=== PATIENT | female | born 1985 | race Caucasian/White ===

== ENCOUNTER 2020-02-12 06:56 | Outpatient (REF) | payer OTHER, SELFPAY ==
[2020-02-12 11:29] LABS: Hematocrit 41.7 % (37-47); Hemoglobin 13.9 g/dl (12.0-16.0); Mean Corpuscular HGB Conc 33.3 g/dl (31.0-35.0); Mean Corpuscular Hemoglobin 30.2 pg (27.0-33.0); Mean Corpuscular Volume 90.5 fL (80-98); Mean Platelet Volume 12.1 fL (9.4-12.3); Platelet Count 172 X10*3/uL (160-400); Red Blood Count 4.61 X10*6/uL (4.20-5.50); White Blood Count 4.5 X10*3/uL (4.8-10.8)
[2020-02-12 11:38] LABS: Glucose Urine UA NEG (NEG); Leukocyte Esterase Urine 2+ (NEG); Nitrite Urine NEG (NEG); Urine Blood NEG (NEG); Urine Ketones NEG (NEG); Urine Protein NEG (NEG-TRACE)
[2020-02-12 11:47] LABS: Appearance Urine HAZY; Color Urine STRAW
[2020-02-12 11:58] LABS: Bacteria Urine 1+ /LPF; RBC Urine 0 /HPF (0); Squamous Epithelial Cell Urine 4+ /LPF
[2020-02-12 12:20] LABS: Alanine Aminotransferase 14 U/L (0-31); Albumin Level 4.4 g/dL (3.5-5.0); Alkaline Phosphatase 56 U/L (39-117); Anion Gap 16 (12-20); Aspartate Amino Transferase 17 U/L (5-31); Bilirubin Total 0.9 mg/dL (0.0-1.0); Blood Urea Nitrogen 13 mg/dL (9-16); Carbon Dioxide 22 mmol/L (22-29); Chloride 103 mmol/L (96-108); Cholesterol 160 mg/dL; Estimated Glomerular Filt Rate > 60; Glucose Fasting 75 mg/dL (60-99); HDL Cholesterol 55 mg/dL; LDL Cholesterol Calculated 95 mg/dl; Sodium 137 mmol/L (135-145); Total Protein 7.1 g/dL (6.5-8.0); Triglycerides 54 mg/dL
== END 2020-02-12 06:57 | disposition home or self-care (01) ==
LOC: HO.HMGCLDS 06:56
PROVIDERS: PCP Internal Medicine; Visit Provider Internal Medicine
DX: Z00.00 Encounter for general adult medical examination without abnormal findings (principal)
CPT/HCPCS: 36415; 80053; 80061; 81001; 85027

== ENCOUNTER 2023-04-28 08:10 | Outpatient (AMB) | payer OTHER, SELFPAY ==
--- NOTE | 2023-04-28 08:22 | MHC.PC.OV ---
Vital Signs 04/28/23 08:23 Height 5 ft 6 in Weight 161 lb BMI 26.0 BP 110/70 Blood Pressure Location Lt brachial Position Sitting Pulse 60 Pulse Source Pulse Oximeter Pulse Oximetry (%) 96 Oxygen Delivery Method Room Air Intake Visit Reasons: Annual PE Intake Note: Pt is here today for PE. 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 Allergies No Known Allergies Allergy (Verified 04/28/23 08:25) Medication List - Last Reconciled 04/28/23 by Diana Mcneill MD desog-e.estradiol/e.estradiol 0.15-0.02 mgx21 /0.01 mg x 5 (Vi[place]le (28)) 1 tab PO DAILY Tobacco use date assessed: 04/28/23 Dental Screening Dental Screen Date: 04/28/23 Did you have a dental visit in the last 12 months?: Yes Did you have a dental problem in the last 6 months where you did not have access to dental care?: No Was dental information given to patient?: Patient has dentist HPI Annual PE HPI Details Pt presents for PE. [facility] Medical History Thyroiditis Annual physical exam Surgical History (Updated 01/10/20 @ 15:02 by Linda Freitsa Silvano, [facility]) Hx of knee surgery Family History (Updated 04/28/23 @ 08:41 by Diana Mcneill MD) Father No problems noted. Mother HTN (hypertension) CAD (coronary artery disease) Sister No problems noted. Sister No problems noted. 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 1. Little interest or pleasure in doing things: not at all 2. Feeling down, depressed, or hopeless: not at all 3. Trouble falling or staying asleep, or sleeping too much: not at all 4. Feeling tired or having little energy: not at all 5. Poor appetite or overeating: not at all 6. Feeling bad about yourself - or that you are a failure or have let yourself or your family down: not at all 7. Trouble concentrating on things, such as reading the newspaper or watching television: not at all 8. Moving or speaking so slowly that other people could have noticed. Or the opposite - being so fidgety or restless that you have been moving around a lot more than usual: not at all 9. Thoughts that you would be better off or of hurting yourself in some way: not at all Total score: 0 Depression Screening Interpretation: Negative Depression Screening Done: Yes Source: Developed by Drs. Rigo Castillo, Pam Latham, Kelvin Reyes and colleagues, with an educational bogdan from [employer]. Thrive Questionnaire Date Thrive assessed: 04/28/23 I am a: Patient What is your living situation today?: I have a steady place to live Within the past 12 months, did the food you bought not last and you didn't have the money to get more?: Never true Within the past 12 months, did you worry whether your food would run out before you got money to buy more?: Never true Do you have trouble paying for medicines?: No Do you have trouble getting transportation to medical appointments?: No Do you have trouble paying your heating and electricity bill?: No Do you have trouble taking care of your child, family member or friend?: No Do you have trouble with day-to-day activities such as bathing, preparing meals, shopping, managing finances, etc.?: No Are you currently unemployed and looking for a job?: No Are you interested in more education?: No Please select the resources that you would like help with: None THRIVE Score: 0 AUDIT C Alcohol Use Questionnaire (AUDIT-C) 1. How often do you have a drink containing alcohol?: Monthly or less 2. How many drinks containing alcohol do you have on a typical day when you are drinking?: 1 or 2 3. How often do you have six or more drinks on one occasion?: Never Total Score: 1 KASSANDRA-7 AMB Questionnaire KASSANDRA-7 Date KASSANDRA - 7 assessed: 04/28/23 Feeling nervous, anxious, or on edge: 0 = Not at all Not being able to stop or control worryin = Not at all Worrying too much about different things: 0 = Not at all Trouble relaxin = Not at all Being so restless that it is hard to sit still: 0 = Not at all Becoming easily annoyed or irritable: 0 = Not at all Feeling afraid as if something awful might happen: 0 = Not at all Total KASSANDRA-7 score (0-4 normal; 5-9 mild; 10-14 moderate; 15-21 severe): 0 Source: Developed by Drs. Rigo Castillo, Pam Latham, Kelvin Reyes and colleagues, with an educational bogdan from [employer]. Review of Systems Const All systems reviewed & are unremarkable except as noted in HPI and below Reports no additional complaints Eyes Reports no additional complaints ENT Reports no additional complaints Card Reports no additional complaints Resp Reports no additional complaints GI Reports no additional complaints Reports no additional complaints Physical exam (Primary Care) Vital Signs: Last Vital Signs Pulse 60 04/28/23 08:23 BP 110/70 04/28/23 08:23 Pulse Ox 96 04/28/23 08:23 Oxygen Delivery Method Room Air 04/28/23 08:23 BMI result Body Mass Index 26.0 Tobacco/Smoking Status: Tobacco use Status Tobacco use date assessed 04/28/23 04/28/23 08:31 Patient Tobacco Use Status Never used Tobacco 04/28/23 08:31 e-Cigarette/Vaping Use Never Used 04/28/23 08:31 PHQ-9: PHQ-9 Score PHQ-9: Total score 0 04/28/23 08:37 Depression Screening Interpretation: Negative Thrive Assessment: Date of Thrive Assessment Date Thrive assessed 04/28/23 04/28/23 08:33 Const General: no acute distress HENMT Head: Yes normal to inspection Ears: hearing grossly normal bilaterally Face and sinus: Yes normal facial exam Mouth: Normal oral and palatal mucosa present Throat: Yes posterior oropharynx normal Eyes General: appearance normal, both eyes and all related structures Neck Neck: Yes no lymphadenopathy and Yes supple Chest Chest palpation & inspection: normal inspection of the chest Resp Effort & Inspection: normal respiratory effort Cardio Rhythm: regular rhythm Heart sounds: S1 normal heart sound present and S2 normal heart sound present GI Inspection: Yes normal to inspection Palpation (GI): Soft to palpation Percussion: Yes normal to percussion Auscultation: normal bowel sounds Assessment and Plan Assessment & Plan (1) Annual physical exam: Code(s): Z00.00 - Encounter for general adult medical examination without abnormal findings Plan: Well-balanced diet regular physical activity discussed with the patient. 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 Panel Fast Today Z00.00 - Encounter for general adult medical examination without abnormal findings UA w Microscopic Today Z00.00 - Encounter for general adult medical examination without abnormal findings Referrals Dermatology Referral D23.9 - Other benign neoplasm of skin, unspecified Coding Level of Care Code Est Pt Prev Care 18-39y(05163) Diagnoses Annual physical exam Z00.00 Dysplastic nevi D23.9
[2023-04-28 08:23] VITALS: BP 110/70; PULSE 60; O2SAT 96; BMI 26.0
== END 2023-04-28 08:47 | disposition home or self-care (01) ==
PROVIDERS: PCP Internal Medicine; Visit Provider Internal Medicine
DX: Z00.00 Encounter for general adult medical examination without abnormal findings (principal); D23.9 Other benign neoplasm of skin, unspecified
CPT/HCPCS: 99395

== ENCOUNTER 2023-06-23 07:16 | Outpatient (REF) | payer OTHER, SELFPAY ==
[2023-06-23 10:32] LABS: MANUAL DIFF FLAG NO
[2023-06-23 10:35] LABS: Basophils Percent Auto 0.5 % (0-2); Eosinophils Absolute Auto 0.1 X10*3/uL (0.0-0.4); Eosinophils Percent Auto 1.7 % (0-4); Hematocrit 41.9 % (37.0-47.0); Hemoglobin 14.1 g/dl (12.0-16.0); Imm Gran Abs Auto 0.01 X10*3/uL (0.00-0.03); Imm Gran Pct Auto 0.2 % (0.0-0.4); Lymphocytes Absolute Auto 1.6 X10*3/uL (1.2-4.9); Lymphocytes Percent Auto 38.6 % (20-40); Mean Corpuscular HGB Conc 33.7 g/dl (31.0-35.0); Mean Corpuscular Hemoglobin 29.9 pg (27.0-33.0); Mean Corpuscular Volume 88.8 fL (80.0-98.0); Mean Platelet Volume 11.8 fL (9.4-12.3); Monocytes Absolute Auto 0.7 X10*3/uL (0.1-1.2); Monocytes Percent Auto 16.1 % (2-11); Neutrophils Absolute Auto 1.8 x10*3/uL (2.0-8.3); Neutrophils Percent Auto 42.9 % (45-73); Platelet Count 170 X10*3/uL (160-400); Red Blood Count 4.72 X10*6/uL (4.20-5.50); Red Cell Distribution Width 12.7 % (11.0-16.0); White Blood Count 4.2 X10*3/uL (4.8-10.8)
[2023-06-23 10:50] LABS: Appearance Urine Clear; Color Urine Yellow; Glucose Urine UA Negative (Negative); Leukocyte Esterase Urine Trace (Negative); Nitrite Urine Negative (Negative); PH 7.5 (5.0-9.0); UMIC TRIGGER UA YES; Urine Blood Moderate (2+) (Negative); Urine Ketones Negative (Negative); Urine Protein Negative (Neg-Trace)
[2023-06-23 11:07] LABS: Bacteria Urine None Seen (None Seen); Hyaline Casts Urine 0-2 /LPF (0-2); Squamous Epithelial Cell Urine >20 /HPF (0-2); WBC Urine 0-5 /HPF (0-5)
[2023-06-23 11:18] LABS: Alanine Aminotransferase 23 U/L (0-31); Albumin Level 3.9 g/dL (3.5-5.0); Alkaline Phosphatase 47 U/L (39-117); Anion Gap 13 (12-20); Aspartate Amino Transferase 19 U/L (5-31); Bilirubin Total 0.3 mg/dL (0.0-1.0); Blood Urea Nitrogen 12 mg/dL (9-16); Calcium 9.5 mg/dL (8.4-10.2); Carbon Dioxide 27 mmol/L (22-29); Chloride 104 mmol/L (96-108); Cholesterol 169 mg/dL (<200); Estimated Glomerular Filt Rate > 60; Glucose Fasting 84 mg/dL (60-99); HDL Cholesterol 65 mg/dL (>40); LDL Cholesterol Calculated 89 mg/dL (<100); Potassium 4.2 mmol/L (3.3-5.1); Sodium 140 mmol/L (135-145); Total Protein 7.2 g/dL (6.5-8.0); Triglycerides 78 mg/dL (<150)
== END 2023-06-23 07:17 | disposition home or self-care (01) ==
LOC: HO.HMGCLDS 07:16
PROVIDERS: PCP Internal Medicine; Visit Provider Internal Medicine
DX: Z00.00 Encounter for general adult medical examination without abnormal findings (principal)
CPT/HCPCS: 36415; 80053; 80061; 81001; 85025

== ENCOUNTER 2023-07-12 07:08 | Outpatient (REF) | payer OTHER, SELFPAY ==
[2023-07-12 10:40] LABS: Appearance Urine Clear; Color Urine Yellow; Glucose Urine UA Negative (Negative); Leukocyte Esterase Urine Negative (Negative); Nitrite Urine Negative (Negative); PH 7.5 (5.0-9.0); Specific Gravity - Urine 1.015 (1.005-1.025); Urine Blood Negative (Negative); Urine Ketones Negative (Negative); Urine Protein Negative (Neg-Trace)
[2023-07-12 10:46] LABS: Bacteria Urine None Seen (None Seen); Hyaline Casts Urine 0-2 /LPF (0-2); RBC Urine 0-2 /HPF (0-2); WBC Urine 0-5 /HPF (0-5)
== END 2023-07-12 07:09 | disposition home or self-care (01) ==
LOC: HO.HMGCLDS 07:08
PROVIDERS: PCP Internal Medicine; Visit Provider Internal Medicine
DX: Z00.00 Encounter for general adult medical examination without abnormal findings (principal)
CPT/HCPCS: 81001

== ENCOUNTER 2024-05-10 12:49 | Outpatient (AMB) | payer OTHER, SELFPAY ==
--- NOTE | 2024-05-10 13:18 | A.OFFPC_ITS ---
Vital Signs 05/10/24 13:19 Height 5 ft 6 in Weight 168 lb BMI 27.1 BP 110/66 Blood Pressure Location Rt brachial Position Sitting Respiration 18 Pulse 61 Pulse Source Pulse Oximeter Temp 98.6 F Temp Source Oral Pulse Oximetry (%) 98 Oxygen Delivery Method Room Air Intake Visit Reasons: Annual PE Intake Note: Pt is here today for PE. Allergies No Known Allergies Allergy (Verified 05/10/24 13:21) Tobacco use date assessed: 05/10/24 Dental Screening Dental Screen Date: 05/10/24 Did you have a dental visit in the last 12 months?: Yes Did you have a dental problem in the last 6 months where you did not have access to dental care?: No Was dental information given to patient?: Patient has dentist HPI Annual PE HPI Details Pt presents for PE. PFSH Medical History Thyroiditis Annual physical exam Surgical History Hx of knee surgery Family History Father No problems noted. Mother HTN (hypertension) CAD (coronary artery disease) Sister No problems noted. Sister No problems noted. 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 1. Little interest or pleasure in doing things: not at all 2. Feeling down, depressed, or hopeless: not at all 3. Trouble falling or staying asleep, or sleeping too much: not at all 4. Feeling tired or having little energy: several days 5. Poor appetite or overeating: not at all 6. Feeling bad about yourself - or that you are a failure or have let yourself or your family down: not at all 7. Trouble concentrating on things, such as reading the newspaper or watching television: not at all 8. Moving or speaking so slowly that other people could have noticed. Or the opposite - being so fidgety or restless that you have been moving around a lot more than usual: not at all 9. Thoughts that you would be better off or of hurting yourself in some way: not at all Total score: 1 Depression Screening Interpretation: Negative Depression Screening Done: Yes 05343 - PHQ-9 Billing: Yes Source: Developed by Drs. Rigo Castillo, Pam Latham, Kelvin Reyes and colleagues, with an educational bogdan from [employer]. Thrive Questionnaire Date Thrive assessed: 05/10/24 I am a: Patient What is your living situation today?: I have a steady place to live Within the past 12 months, did the food you bought not last and you didn't have the money to get more?: Never true Within the past 12 months, did you worry whether your food would run out before you got money to buy more?: Never true Do you have trouble paying for medicines?: No Do you have trouble getting transportation to medical appointments?: No Do you have trouble paying your heating and electricity bill?: No Do you have trouble taking care of your child, family member or friend?: No Do you have trouble with day-to-day activities such as bathing, preparing meals, shopping, managing finances, etc.?: No Are you currently unemployed and looking for a job?: No Are you interested in more education?: No Please select the resources that you would like help with: None Currently or been in a relationship where the following occur: No concerns reported THRIVE Score: 0 AUDIT C Alcohol Use Questionnaire (AUDIT-C) 1. How often do you have a drink containing alcohol?: Monthly or less 2. How many drinks containing alcohol do you have on a typical day when you are drinking?: 3 or 4 3. How often do you have six or more drinks on one occasion?: Never Total Score: 2 KASSANDRA-7 AMB Questionnaire KASSANDRA-7 Date KASSANDRA - 7 assessed: 05/10/24 Feeling nervous, anxious, or on edge: 1 = Several days Not being able to stop or control worryin = Not at all Worrying too much about different things: 1 = Several days Trouble relaxin = Not at all Being so restless that it is hard to sit still: 0 = Not at all Becoming easily annoyed or irritable: 1 = Several days Feeling afraid as if something awful might happen: 0 = Not at all Total KASSANDRA-7 score (0-4 normal; 5-9 mild; 10-14 moderate; 15-21 severe): 3 Source: Developed by Drs. Rigo Castillo, Pam Latham, Kelvin Reyes and colleagues, with an educational bogdan from [employer]. KASSANDRA-7 Assessment Billing KASSANDRA-7 Assessment Tool: KASSANDRA-7 Assessment 10237 Review of Systems Const All systems reviewed & are unremarkable except as noted in HPI and below Reports no additional complaints Eyes Reports no additional complaints ENT Reports no additional complaints Card Reports no additional complaints Resp Reports no additional complaints GI Reports no additional complaints Physical exam (Primary Care) Vital Signs: Last Vital Signs Temp 98.6 F 05/10/24 13:19 Pulse 61 05/10/24 13:19 Resp 18 05/10/24 13:19 BP 110/66 05/10/24 13:19 Pulse Ox 98 05/10/24 13:19 Oxygen Delivery Method Room Air 05/10/24 13:19 BMI result Body Mass Index 27.1 Tobacco/Smoking Status: Tobacco use Status Tobacco use date assessed 05/10/24 05/10/24 13:24 Patient Tobacco Use Status Never used Tobacco 05/10/24 13:24 e-Cigarette/Vaping Use Never Used 05/10/24 13:24 PHQ-9: PHQ-9 Score PHQ-9: Total score 1 05/10/24 13:24 Depression Screening Interpretation: Negative Thrive Assessment: Date of Thrive Assessment Date Thrive assessed 05/10/24 05/10/24 13:24 Currently or been in a relationship where the following occur: No concerns reported Const General: no acute distress HENMT Head: Yes normal to inspection Ears: hearing grossly normal bilaterally Mouth: Normal oral and palatal mucosa present Throat: Yes posterior oropharynx normal Eyes General: appearance normal, both eyes and all related structures Neck Neck: Yes no lymphadenopathy and Yes supple Resp Effort & Inspection: normal respiratory effort Auscultation: clear to auscultation bilaterally Cardio Rhythm: regular rhythm Heart sounds: S1 normal heart sound present and S2 normal heart sound present GI Inspection: Yes normal to inspection Palpation (GI): Soft to palpation Percussion: Yes normal to percussion Auscultation: normal bowel sounds Coding Level of Care Code Est Pt Prev Care 18-39y(54280) Diagnoses Annual physical exam Z00.00 Normal pelvic exam Z01.419 Additional Codes KASSANDRA-7 Assessment Billing - KASSANDRA-7 Assessment Tool: KASSANDRA-7 Assessment 59341 ([id number]) PHQ-9 - 27978 - PHQ-9 Billing: Yes ([id number]) Assessment & Plan Assessment & Plan (1) Annual physical exam: Code(s): Z00.00 - Encounter for general adult medical examination without abnormal findings Category: Medical Plan: Well-balanced diet regular physical activity discussed with the patient (2) Normal pelvic 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
[2024-05-10 13:19] VITALS: BP 110/66; PULSE 61; RESP 18; TEMP 37; O2SAT 98; BMI 27.1
--- OUTSIDE RECORDS SUMMARY | 2024-05-10 14:39 | XMS_ITS | Patient Health Record ---
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 Name Role Phone Diana Mcenill MD Primary Care Provider Carrie Lo Unavailable [phone] Allergies No Known Allergies Results Component Value Reference Range Notes Urinalysis Reviewed date:03/04/2024 02:03:48 PM Interpretation: Performing Lab: Notes/Report: PH 5.0 PROTEIN Neg GLUCOSE Neg BLOOD Trace Reason For Referral No Information Medications Medication SIG (Take, Route, Frequency, Duration) Notes Start Date End Date Status Multi-Vitamin - 1 tablet Orally Once a day Active Kariva 0.15-0.02/0.01 MG (26/06) 1 tablet Orally Once a day for 90 days 03/04/2024 Active Kariva 0.15-0.02/0.01 MG (26/06) 1 tablet Orally Once a day for 90 days 03/01/2023 Active Immunizations Vaccine Route Administration Date Status Comme nts Influenza, live, intranasal Intramuscular 12/13/2012 Pendi ng Tdap Intramuscular 12/13/2012 Pending Social History Tobacco Use: Social History Observation Description Date Details (start date - stop date) Never Smoker NA - NA Sexual History Question Answer Notes Had sex in the past 12 months (vaginal, oral, or anal)? Yes with Men only Prevention strategies discussed: Other AUDIT-C (Standard) Question Answer Notes Did you have a drink contain ing alcohol in the past year? Yes How often did you have a dri nk containing alcohol in the past year? Never (0 point) How many drinks did you have on a typical day when you were drinking in the past year? 1 or 2 drinks (0 point) How often did you have six o r more drinks on one occasion in the past year? Less than monthly (1 point) Points 1 Interpretation Negative Tobacco Control (Standard) Question Answer Notes Tobacco use: Nonsmoker Problems Problem Type SNOMED Code ICD Code Onset Dates Problem Status W/U Status Risk Notes Problem Amenorrhea (63202269) Amenorrhea, unspecified (N91.2) Active confirmed Problem Irregular Menstruation (83290148) Other specified irregular menstruation (N92.5) Active confirmed Problem Abnormal vaginal bleeding (496347009) Other specified abnormal uterine and vaginal bleeding (N93.8) Active confirmed Problem Gynecological examination normal (936469947680408) Encounter for gynecological examination (general) (routine) without abnormal findings (Z01.419) Active confirmed Problem General examination of patient (688188652) Routine general medical examination at health care facility (V70.0) Active confirmed Diag Problem Gynecological examination normal (819032675242160) Routine gynecological examination (V72.31) Active confirmed Diag Problem Exercises teaching, guidance, and counseling (201017566) Exercise counseling (V65.41) Active confirmed Diag Vital Signs Temperature 97.9 degrees Fahrenheit 03/04/2024 Blood pressure diastolic 76 mm Hg 03/04/2024 Height 66.5 in 03/04/2024 Blood pressure systolic 106 mm Hg 03/04/2024 Weight 168 lbs 03/04/2024 BMI 26.71 kg/m2 03/04/2024 Encounters Encounter Location Date Provider Diagnosis [address] [place] [address] 03/04/2024 Carrie Quiles Encounter for gynecological examination (general) (routine) without abnormal findings Z01.419 ; Encounter for surveillance of contraceptives, unspecified Z30.40 and Other specified irregular menstruation N92.5 Assessments Encounter Date Diagnosis (ICD Code) Assessment Notes Treatment Notes Treatment Clinical Notes Section Notes 03/04/2024 Encounter for gynecological examination (general) (routine) without abnormal findings (ICD-10 - Z01.419) NO PAP TEST, DUE IN 2025. 03/04/2024 Encounter for surveillance of contraceptives, unspecified (ICD-10 - Z30.40) PAT'S HAS HAD A VASECTOMY. SHE IS ON OCP'S TO REGULATE MENSES. 03/04/2024 Other specified irregular menstruation (ICD-10 - N92.5) CONTINUE KARIVA. Plan Of Treatment Pending Test Test Name Order Date THIN PREP,HPV,JOHANNE IF HPV+ (>29YR)(SCRN) 04/24/2017 ULTRASOUND: PELVIC W/TRANSVAGINAL 2017 ENDO/VAG ULTRASOUND OB 02/20/2020 Next Appt Details Provider Name:Carrie art, 03/07/2025 01:00:00 PM, [address] [facility] [facility], [address], [place], [address], Insurance Providers Payer Name Payer Address Payer Phone Subscriber Number Group Number Insured Name Patient Relationship to Insured Coverage Start Date Coverage End Date [employer] [address] [place] [address] [id number] DHRUV ALONSO Self - patient is the insured Medical (General) History Medical History History ICD Code Amenorrhea, unspecified N91.2 Uterine size-date discrepancy, first tri mester O26.841 Other specified abnormal uterine and vag inal bleeding N93.8 Surgical History Surgery Date(Month/Year) Left Knee Surgery/ACL Repair/Meniscus [place] [facility] Left Miniiscus Surgery x3 Toe Tendon Repair 10/2020 Hospitalization History Reason Date(Month/Year) See Surgical Hx
--- OUTSIDE RECORDS SUMMARY | 2024-05-10 14:39 | XMS_ITS ---
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 Electromechanical Engineer Name Role Phone Diana Mcneill MD Primary Care Provider Carrie Lo [phone] Medications Medication SIG (Take, Route, Frequency, Duration) Notes Start Date End Date Status Kariva 0.15-0.02/0.01 MG (26/06) 1 tablet Orally Once a day for 90 days 03/01/2023 Active Encounters Encounter Location Date Provider Diagnosis [facility] [address] [address] 03/01/2023 Carrie Quiles Plan Of Treatment Medication Medication Name Sig Start Date Stop Date Notes Kariva 0.15-0.02/0.01 MG (26/06) 1 tablet Orally Once a day for 90 days 03/01/2023 Next Appt Details Provider Name:Carrie art, 03/07/2025 01:00:00 PM, [address] [facility], [address], [place], [address], Progress Notes * SIERRA ALONSONICHOLB:1985 (37 yo F)Acc No.[id number]:03/01/2023 Patient:?DHRUV ALONSO :1985???Age:37 Y???Sex:Female Address:[address] [place] [address] , [place], [address] * Refills? Start Kariva Tablet, 0.15-0.02/0.01 MG (26/06), Orally, 3 Pack, 1 tablet, Once a day, 90 days, Refills=4 * true * Date:? Generated for Chucho das/Damian/Marky on:?05/10/2024 02:38 PM EDT
--- OUTSIDE RECORDS SUMMARY | 2024-05-10 14:39 | XMS_ITS ---
Author Organization [facility] Address [address] [place] [address] Care Team Providers Care Client Success Director Name Role Phone Diana Mcneill MD Primary Care Provider Carrie Lo Unavailable [phone] Allergies No Known Allergies Results Component Value Reference Range Notes Urinalysis Reviewed date:02/27/2023 02:09:55 PM Interpretation: Performing Lab: Notes/Report: PH 6.0 PROTEIN Neg GLUCOSE Neg BLOOD Large ESTRADIOL Reviewed date:02/28/2023 09:14:22 AM Interpretation: Performing Lab:Testing performed or reported by [facility], a Service of [facility], [address] [place] [address] Charlie Trejo MD, Painter And Body Mechanic Apprentice [facility]# [id number] Notes/Report: ESTRADIOL 61 Reference Ranges: Luteal Phase: 44-211 pg/mL Ovulation: 86-498 pg/mL Follicular Phase: 13-166 pg/mL Postmenopausal: <55 pg/mL Estradiol test method is an electrochemiluminescence immunoassay manufactured by [employer] and performed on the Modular or Maribell system. This assay has cross reactivity to the drug fulvestrant which may lead to falsely elevated estradiol results. Therefore, an alternate method such as liquid chromatography-tandem mass spectrometry should be used when monitoring estradiol levels in patients being treated with the drug fulvestrant. FSH Reviewed date:03/01/2023 11:54:23 AM Interpretation: Performing Lab:Testing performed or reported by [facility], a Service of [address] [address] Charlie Trejo MD, Painter And Body Mechanic Apprentice [facility]# [id number] Notes/Report: FSH 4.1 Reference Range: Follicular: 3.5-12.5 mIU/mL Ovulation: 4.7-21.5 mIU/mL Luteal: 1.7-7.7 mIU/mL Postmenopausal: 25.8-134.8 mIU/mL LH Reviewed date:02/28/2023 09:14:47 AM Interpretation: Performing Lab:Testing performed or reported by [facility], a Service of [address] [address] Charlie Trejo MD, Painter And Body Mechanic Apprentice [facility]# [id number] Notes/Report: LH 3.3 Reference Range: Follicular: 2.4-12.6 mIU/mL Ovulation: 14.0-95.6 mIU/mL Luteal: 1.0-11.4 mIU/mL Postmenopausal: 7.7-58.5 mIU/mL PROLACTIN Reviewed date:02/28/2023 09:14:33 AM Interpretation: Performing Lab:Testing performed or reported by [facility], a Service of [address] [address] Charlie Trejo MD, Painter And Body Mechanic Apprentice [facility]# [id number] Notes/Report: PROLACTIN 6.4 (4.8-23.3) NG/ML TSH Reviewed date:02/28/2023 09:14:02 AM Interpretation: Performing Lab:Testing performed or reported by [facility], a Service of [address] [address] Charlie Trejo MD, Painter And Body Mechanic Apprentice [facility]# [id number] Notes/Report: TSH 3.29 (0.4-4.2) uIU/mL REASON FOR VISIT Annual PUBLIC HEALTH SPECIALIST Physical, Annual PUBLIC HEALTH SPECIALIST Physical 30-39* Medications Medication SIG (Take, Route, Fr equency, Duration) Notes Start Date End Date Status Multi-Vitamin - 1 tablet Orally Once a day Active Social History Tobacco Use: Social History Observation Description Date Details (start date - stop date) Never Smoker NA - NA Tobacco Use/Smoking Question Answer Notes Are you a nonsmoker Alcohol Screen (Audit-C) Question Answer Notes Did you have a drink contain ing alcohol in the past year? Yes How often did you have a dri nk containing alcohol in the past year? Monthly or less (1 point) How many drinks did you have on a typical day when you were drinking in the past year? 1 or 2 drinks (0 point) Points 1 Interpretation Negative Sexual History Question Answer Notes Had sex in the past 12 months (vaginal, oral, or anal)? Yes with Men only Prevention strategies discussed: Other Problems Problem Type SNOMED Code ICD Code Onset Dates Problem Status W/U Status Risk Notes Problem Gynecological examination normal (906740831477121) Encounter for gynecological examination (general) (routine) without abnormal findings (Z01.419) Active confirmed Problem Abnormal vaginal bleeding (575501414) Other specified abnormal uterine and vaginal bleeding (N93.8) Active confirmed Vital Signs Temperature 98.1 degrees Fahrenheit 02/27/19 24 Blood pressure systolic 108 mm Hg 02/27/19 24 Blood pressure diastolic 78 mm Hg 024 Height 66.5 in 02/27/2023 Weight 165 lbs 02/27/2023 BMI 26.23 kg/m2 02/27/2023 Encounters Encounter Location Date Provider Diagnosis [address] [place] [address] 02/27/2023 Carrie Quiles Encounter for gynecological examination (general) (routine) without abnormal findings Z01.419 ; Other specified abnormal uterine and vaginal bleeding N93.8 and Encounter for surveillance of contraceptives, unspecified Z30.40 Assessments Encounter Date Diagnosis (ICD Code) Assessment Notes Treatment Notes Treatment Clinical Notes Section Notes 02/27/2023 Encounter for gynecological examination (general) (routine) without abnormal findings (ICD-10 - Z01.419) NO PAP TEST, DUE IN 2025. 02/27/2023 Other specified abnormal uterine and vaginal bleeding (ICD-10 - N93.8) DISCUSSED COMMON CAUSES OF IRREGULAR AND SHORT MENSES. CHECK PROLACTIN, TSH, FSH, LH AND ESTRADIOL. IF NORMAL, CONSIDER A SHORT COURSE OF OCP'S TO HELP REGULAT MENSES. CONSIDER KARIVA. IF ABNORMAL, WILL PROCEED WITH FURTHER WORK UP. WILL CALL PAT WITH RESULTS. 02/27/2023 Encounter for surveillance of contraceptives, unspecified (ICD-10 - Z30.40) AISHWARYA HAS HAD A VASECTOMY. Plan Of Treatment Treatment Notes Assessment Notes Encounter for gynecological examination (general) (routine) without abnormal findings NO PAP TEST, DUE IN 2025. Other specified abnormal [place] rine and vaginal bleeding DISCUSSED COMMON CAUSES OF IRREGULAR AND SHORT MENSES. CHECK PROLACTIN, TSH, FSH, LH AND ESTRADIOL. IF NORMAL, CONSIDER A SHORT COURSE OF OCP'S TO HELP REGULAT MENSES. CONSIDER KARIVA. IF ABNORMAL, WILL PROCEED WITH FURTHER WORK UP. WILL CALL PAT WITH RESULTS. Encounter for surveillance o f contraceptives, unspecified AISHWARYA HAS HAD A VASECTOMY. Next Appt Details Follow Up: 1 Year, Reason: Provider Name:Carrie art, 03/07/2025 01:00:00 PM, [address], [address], [place], [address], Progress Notes * KEV ALONSOADOB:1985 (37 yo F)Acc No.[id number]:02/27/2023 PROGRESS NOTES Patient:?DHRUV ALONSO Appointment Provider:?Carrie art M.D. :1985???Age:37 Y???Sex:Female D ate:02/27/2023 Address:[address] [place], [place] [id number] Pcp:Diana Mcneill MD Subjective: * Chief Complaints: * ???Annual PUBLIC HEALTH SPECIALIST PhysicalAnnual PUBLIC HEALTH SPECIALIST Physical -39* * HPI: ???New/Follow-up Patient Consult:? PAT HAD REGULAR MENSES PRIOR TO STARTING THE PILL FOR CONTRACEPTION YEARS AGO. 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 SHE HAD NO MENSES WHILE NURSING BUT SINCE STOPPING, SHE HAS HAD VERY SHORT CYCLES Q 21 TO 22 DAYS. SHE SPOTS FOR SEVERAL DAYS, THEN BLEEDS HEAVILY FOR 4 TO 5 DAYS AND THEN SPOTS AGAIN FOR SEVERAL DAYS, SO SHE IS BLEEDING FOR CLOSE TO 2 WEEKS Q 3 WEEKS. SHE HAD BEEN ON OCP'S PRIOR TO HER PREGNANCIES AND IN BETWEEN HER PREGNANCIES. SHE HAS NO CONTRAINDICATIONS TO OCP USE. ?HER HAS HAD A VASECTOMY. ?HER LAST PAP TEST IN NOV 2022 WAS NEGATIVE AND HPV NEGATIVE. SHE HAS NO HX OF ABNORMAL BLEESING. ?PFIZER X 3. ???Annual:? Patient presents for annual exam ages 30-39. ?Menstrual History:?Regularity of Cycles:?regular ?Currently using control:?__ ?Satisfaction/Dissatisfaction of current method of control:?__ ?General Health Maintenance:?Current breast complaints:?no breast pain, mass, discharge, or skin changes ?Urinary problems:?patient reports no urinary health problems or bowel health problems ?Calcium intake:?takes adequate calcium via 3-4 servings of dairy daily ?Significant PUBLIC HEALTH SPECIALIST problems:?no significant amusement park worker symptoms or problems * ROS:?general:?no?chest pain.?no?palpitations.?no?headache.?no?cough.?no?shortness of breath.?no?fever.?no?unexplained weight loss.?no?nausea/vomiting.?no?change in bowel movements.?no blood in stool.?no?genitourinary complaints.?no?skin complaints.? * Medical History:? 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 Control:? had vasectomy.?Gardasil:?series completed.? * OB History:?Total pregnancies?2.?Total living children?2.?NVD?2.? * Surgical History:?Left Knee Surgery/ACL Repair/Meniscus [place] Teeth Left Miniiscus Surgery x3 Toe Tendon Repair 10/2020 * Hospitalization/Major Diagno stic Procedure:?See Surgical Hx * Family History:?Mother: raul iqbal, well, Hyperlipidemia.?Father: alive, well.?2 sister(s) - healthy. .? * Social History:?Tobacco Use:?Tobacco Use/Smoking?Are you a?nonsmoker ???Sexual History:?Sexual History?Had sex in the past 12 months (vaginal, oral, or anal)??Yes ?with?Men only ?Prevention strategies discussed:?Other ?Details of Sexual History?Are you sexually active??Yes ???Drugs/Alcohol:?Drugs?Have you used drugs other than those for medical reasons in the past 12 months??No ?Alcohol Screen (Audit-C)?Did you have a drink containing alcohol in the past year??Yes ?How often did you have a drink containing alcohol in the past year??Monthly or less (1 point) ?How many drinks did you have on a typical day when you were drinking in the past year??1 or 2 drinks (0 point) ?Points?1 ?Interpretation?Negative ???Miscellaneous:?no Caffeine. ?no Children. ?Exercise: yes. ?Home smoke detector use: yes. ?Living with: spouse. ?Marital status: . ?Natural support system: yes. 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 ?Sexually active: yes, monogamous relationship. ?Travel outside of the [place]: yes, [place] and [place]. * Medications:?TakingMulti-Vit rowell - Tablet 1 tablet Orally Once a dayMedication List reviewed and reconciled with the patientTaking Multi-Vitamin - Tablet 1 tablet Orally Once a dayMedication List reviewed and reconciled with the patient * Allergies:?N.K.D.A.no[Allerg ies Verified] Objective: * Vitals:?Ht: 66.5 in, Wt:165 lbs, BMI:26.23 Index, BP:108/78 mm Hg, Temp:98.1 F. * Examination: ???General Exam: ?CONSTITUTIONAL:?General Appearance:?alert, in no acute distress, normal, well nourished ?NECK/THYROID:?Inspection/Palpation:?normal ?Thyroid:?normal size and shape ?RESPIRATORY:?Auscultation: clear to auscultation bilaterally, Respiratory Effort: normal.?CARDIOVASCULAR:?Auscultation: regular rate and rhythm.?BREAST, Right:?Inspection/Palpation:?no discharge, no masses present, no nipple retraction, no skin changes, no skin dimpling, no tenderness, no lymphadenopathy, no axillary mass, no axillary tenderness ?BREAST, Left:?Inspection/Palpation:?no discharge, no masses present, no nipple retraction, no skin changes, no skin dimpling, no tenderness, no lymphadenopathy, no axillary mass, no axillary tenderness ?GASTROINTESTINAL:?Abdomen:?no masses, nontender, nondistended ?Liver and Spleen:?normal ?Hernias:?no hernias present, no inguinal adenopathy ?MUSCULOSKELETAL:?Inspection/Palpation:?no clubbing, cyanosis, or edema ?SKIN:?Skin:?normal ?NEURO/PSYCH:?Orientation:?time , place, person ?Mood/Affect:?normal?Genitourinary: ?EXTERNAL GENITALIA:?External Genitalia:?normal, no lesions ?VAGINA:?Vagina:?normal appearance, no abnormal discharge, no lesions ?BLADDER:?Bladder:?no mass, nontender ?URETHRA:?Urethra:?no erythema or lesions present ?CERVIX:?Cervix:?no lesions, nontender ?UTERUS:?Uterus:?nontender, normal contour, normal mobility, normal size ?ADNEXA:?Adnexa:?no masses, no tenderness ?ANUS AND PERINEUM:?Anus/Perineum:?visually normal??? Assessment: * Assessment: 1.?Encounter for gynecologic al examination (general) (routine) without abnormal findings - Z01.419 (Primary)?2.?Other specified abnormal uterine and vaginal bleeding - N93.8?3.?Encounter for surveillance of contraceptives, unspecified - Z30.40? Plan: * Treatment: ? Value Reference Range ?PH 6.0 * ?PROTEIN Neg * ?GLUCOSE Neg * ?BLOOD Large * DNIMISHA Hemphill 02/27/2023 01:12:32 PM > Menses started again today Notes: NO PAP TEST, DUE IN 2025.??2.?Other specified abnormal uterine and vaginal bleeding?LAB: ESTRADIOL* ? Value Reference Range ?ESTRADIOL 61 - PG/ML ?LAB: FSH* ? Value Reference Range ?FSH 4.1 - MIU/ML ?LAB: LH* ? Value Reference Range ?LH 3.3 - MIU/ML ?LAB: PROLACTIN* ? Value Reference Range ?PROLACTIN 6.4 (4.8-23.3) - NG/ML ?LAB: TSH* ? Value Reference Range ?TSH 3.29 (0.4-4.2) - uIU /mL Notes: DISCUSSED COMMON CAUSES OF IRREGULAR AND SHORT MENSES. CHECK PROLACTIN, TSH, FSH, LH AND ESTRADIOL. IF NORMAL, CONSIDER A SHORT COURSE OF OCP'S TO HELP REGULAT MENSES. CONSIDER KARIVA. IF ABNORMAL, WILL PROCEED WITH FURTHER WORK UP. WILL CALL PAT WITH RESULTS.??3.?Encounter for surveillance of contraceptives, unspecified? Notes: AISHWARYA HAS HAD A VASECTOMY.?? * Procedure Codes:? * Preventive Medicine:? ??YOUR PREVENTIVE WELLNESS PLAN:?Osteoporosis prevention?Calcium, D, strength training.?Cervical Cancer Screening (Pap Smear):?q 3 years with HPV screen.? ??Counseling:?Breast awareness?.?Breast self exam after periods:?.?Diet/Vitamins discussed including high doses of Vitamins A, C, E and Zinc:?.?Exercise:?.?Seatbelts:?.?Sunscreen:?.?Patient was counseled regarding the above. * Follow Up:?1 Year * Images: Billing Information: * Visit Code:? * Procedure Codes:? * Sign off status: Completed true * Appointment Provider:?Carrie Quiles M.D. Date:?02/27/2023 Generated for Chucho das/Damian/Joeitting on:?05/10/2024 02:38 PM EDT History and Physical Notes * HPI (History of Present Illness) Category Sub-Category Detail Notes Category Not es New/Follow-up Patient Consult PAT HAD REGULAR MENSES PRIOR TO STARTING THE PILL FOR CONTRACEPTION YEARS AGO. 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 SHE HAD NO MENSES WHILE NURSING BUT SINCE STOPPING, SHE HAS HAD VERY SHORT CYCLES Q 21 TO 22 DAYS. SHE SPOTS FOR SEVERAL DAYS, THEN BLEEDS HEAVILY FOR 4 TO 5 DAYS AND THEN SPOTS AGAIN FOR SEVERAL DAYS, SO SHE IS BLEEDING FOR CLOSE TO 2 WEEKS Q 3 WEEKS. SHE HAD BEEN ON OCP'S PRIOR TO HER PREGNANCIES AND IN BETWEEN HER PREGNANCIES. SHE HAS NO CONTRAINDICATIONS TO OCP USE. HER HAS HAD A VASECTOMY. HER LAST PAP TEST IN NOV 2022 WAS NEGATIVE AND HPV NEGATIVE. SHE HAS NO HX OF ABNORMAL BLEESING. Seawind X 3. Annual Menstrual History: Regularity of Cycles:: regular Currently using control:: __ Satisfaction/Dissatisfaction of current method of control:: __ General Health Maintenance: Current quin st complaints:: no breast pain, mass, discharge, or skin changes Urinary problems:: patient r eports no urinary health problems or bowel health problems Calcium intake:: takes adequ ate calcium via 3-4 servings of dairy daily Significant PUBLIC HEALTH SPECIALIST problems:: n o significant amusement park worker symptoms or problems Examination Category Sub-Category Detail Notes Category Not es General Exam CONSTITUTIONAL: General Appearan ce:: alert, in no acute distress, normal, well nourished NECK/THYROID: Thyroid:: normal size and shape Inspection/Palpation:: normal RESPIRATORY: Auscultation: clear to auscultation bilaterally, Respiratory Effort: normal CARDIOVASCULAR: Auscultation: regula r rate and rhythm GASTROINTESTINAL: Hernias:: no hernias present, no inguinal adenopathy Liver and Spleen:: normal Abdomen:: no masses, nontender, nondiste nded MUSCULOSKELETAL: Inspection/Palpation:: no clubb ing, cyanosis, or edema SKIN: Skin:: normal NEURO/PSYCH: Mood/Affect:: normal Orientation:: time , place, person BREAST, Right: Inspection/Palpation :: no discharge, no masses present, no nipple retraction, no skin changes, no skin dimpling, no tenderness, no lymphadenopathy, no axillary mass, no axillary tenderness BREAST, Left: Inspection/Palpation :: no discharge, no masses present, no nipple retraction, no skin changes, no skin dimpling, no tenderness, no lymphadenopathy, no axillary mass, no axillary tenderness Genitourinary EXTERNAL GENITALIA: External Genitalia:: nor mal, no lesions VAGINA: Vagina:: normal appearance, no a bnormal discharge, no lesions BLADDER: Bladder:: no mass, nontender URETHRA: Urethra:: no erythema or lesions present CERVIX: Cervix:: no lesions, nontender UTERUS: Uterus:: nontender, normal conto ur, normal mobility, normal size ADNEXA: Adnexa:: no masses, no tendernes s ANUS AND PERINEUM: Anus/Perineum:: visually norm al
--- OUTSIDE RECORDS SUMMARY | 2024-05-10 14:39 | XMS_ITS ---
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 Role Phone Diana Mcneill MD Primary Care Provider Carrie Lo Unavailable [phone] Allergies No Known Allergies Results Component Value Reference Range Notes Urinalysis Reviewed date:03/04/2024 02:03:48 PM Interpretation: Performing Lab: Notes/Report: PH 5.0 PROTEIN Neg GLUCOSE Neg BLOOD Trace REASON FOR VISIT Annual RECREATION PROGRAM COORDINATOR Physical, Annual RECREATION PROGRAM COORDINATOR Physical 30-39* Medications Medication SIG (Take, Route, Frequency, Duration) Notes Start Date End Date Status Multi-Vitamin - 1 tablet Orally Once a day Active Kariva 0.15-0.02/0.01 MG (26/06) 1 tablet Orally Once a day for 90 days 03/04/2024 Active Kariva 0.15-0.02/0.01 MG (26/06) 1 tablet Orally Once a day for 90 days 03/01/2023 Active Social History Tobacco Use: Social History [...] Problem Status W/U Status Risk Notes Problem Irregular Menstruation (67685964) Other specified irregular menstruation (N92.5) Active confirmed Vital Signs Temperature 97.9 degrees Fahrenheit 03/04/19 25 Blood pressure systolic 106 mm Hg 03/04/19 25 Blood pressure diastolic 76 mm Hg 025 Height 66.5 in 03/04/2024 Weight 168 lbs 03/04/2024 BMI 26.71 kg/m2 03/04/2024 Encounters Encounter Location Date Provider Diagnosis [facility] [address] [place] [address] 03/04/2024 Carrie Quiles Encounter for gynecological examination [...] - N92.5) CONTINUE KARIVA. Plan Of Treatment Medication Medication Name Sig Start Date Stop Date Notes Kariva 0.15-0.02/0.01 MG (26/06) 1 tablet Orally Once a day for 90 days 03/04/2024 Treatment Notes Assessment Notes Encounter for gynecological examination (general) (routine) without abnormal findings NO PAP TEST, DUE IN 2025. Encounter for surveillance o f contraceptives, unspecified PAT'S HAS HAD A VASECTOMY. SHE IS ON OCP'S TO REGULATE MENSES. Other specified irregular menstruation C ONTINUE KARIVA. Next Appt Details Follow Up: 1 Year, Reason: Provider Name:Carrie art, 03/07/2025 01:00:00 PM, [address], [address], [place], [address], Progress Notes * KEV ALONSOADOB:1985 (38 yo F)Acc No.[id number]:03/04/2024 PROGRESS NOTES Patient:?DHRUV ALONSO Appointment Provider:?Carrie art M.D. :1985???Age:38 Y???Sex:Female D ate:03/04/2024 Address:[address] [place], [place] Pcp:Diana Mcneill MD Subjective: * Chief Complaints: * ???Annual RECREATION PROGRAM COORDINATOR PhysicalAnnual RECREATION PROGRAM COORDINATOR Physical 30-39* * HPI: ???New/Follow-up Patient Consult:? SIDNEY HAS TWO CHILDREN AGES 5 AND 3.? HER HAS HAD A VASECTOMY.? SHE WAS PLACED ON KARIVA TO HELP LENGTHEN HER MENSES.? SHE IS DOING WELL AND IS VERY HAPPY WITH THE PILL.? SHE WANTS TO CONTINUE AND HAS NO CONTRAINDICATIONS. HER LAST PAP TEST IN 2022 WAS NEGATIVE AND HPV NEGATIVE.? SHE HAS NO HX OF ABNORMAL PAP TESTS. ???Annual:? Patient presents for annual exam ages 30-39. 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 * Medical History:? 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 Control:? had vasectomy.?Gardasil:?series completed.? * OB History:?Total pregnancies?2.?Total living children?2.?NVD?2.? * Surgical History:?Left Knee Surgery/ACL Repair/Meniscus [place] Teeth Left Miniiscus Surgery x3 Toe Tendon Repair 10/2020 * Hospitalization/Major Diagno stic Procedure:?See Surgical Hx * Family History:?Mother: raul e, well, Hyperlipidemia.?Father: alive, well.?2 sister(s) - healthy. .? * Social History:?Tobacco Use:?Tobacco Control (Standard)?Tobacco use:?Nonsmoker ???Sexual History:?Sexual History?Had sex in the past 12 months (vaginal, oral, or anal)??Yes ?with?Men only ?Prevention strategies discussed:?Other ?Details of Sexual History?Are you sexually active??Yes ???Drugs/Alcohol:?Drugs?Have you used drugs other than those for medical reasons in the past 12 months??No ???Miscellaneous:?Caffeine: no. ?Children: no. ?Exercise: yes. ?Home smoke detector use: yes. ?Living with: spouse. ?Marital status: . ?Natural support system: yes. 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 ?Sexually active: yes, monogamous relationship. ?Travel outside of the [place]: yes, [place] and [place]. ???Drug/Alcohol:?AUDIT-C (Standard)?Did you have a drink containing alcohol in the past year??Yes ?How often did you have a drink containing alcohol in the past year??Never (0 point) ?How many drinks did you have on a typical day when you were drinking in the past year??1 or 2 drinks (0 point) ?How often did you have six or more drinks on one occasion in the past year??Less than monthly (1 point) ?Points?1 ?Interpretation?Negative * Medications:?TakingMulti-Vit rowell - Tablet 1 tablet Orally Once a day Kariva 0.15-0.02/0.01 MG (21/5) Tablet 1 tablet Orally Once a day Medication List reviewed and reconciled with the patientTaking Multi-Vitamin - Tablet 1 tablet Orally Once a day Taking Kariva 0.15-0.02/0.01 MG (21/5) Tablet 1 tablet Orally Once a day Medication List reviewed and reconciled with the patient * Allergies:?N.K.D.A.no[Allerg ies Verified] Objective: * Vitals:?Ht: 66.5 in, Wt:168l bs, BMI:26.71Index, BP:106/76mm Hg, Temp:97.9F. * Examination: ???General Exam: ?CONSTITUTIONAL:?General Appearance:?alert, in [...] examination (general) (routine) without abnormal findings - Z01.419???2.?Encounter for surveillance of contraceptives, unspecified - Z30.40???3.?Other specified irregular menstruation - N92.5??? Plan: * Treatment: ? Value Reference Range ?PH 5.0 * ?PROTEIN Neg * ?GLUCOSE Neg * ?BLOOD Trace * DNIMISHA Hemphill 03/04/2024 01:09:58 PM EST > End of menses, light spotting Notes: NO PAP TEST, DUE IN 2025.??2.?Encounter for surveillance of contraceptives, unspecified? Notes: SIDNEY'S HAS HAD A VASECTOMY. SHE IS ON OCP'S TO REGULATE MENSES.??3.?Other specified irregular menstruation? Start Kariva Tablet, 0.15-0.02/0.01 MG (26/06), 1 tablet, Orally, Once a day, 90 days, 3 Pack, Refills 4.?? Notes: CONTINUE KARIVA.?? * Procedure Codes:? * Preventive Medicine:? ??YOUR [...] Completed true * Appointment Provider:?Carrie Quiles M.D. Date:?03/04/2024 Generated for Chucho das/Damian/Joeitting on:?05/10/2024 02:38 PM EDT History and Physical Notes * HPI (History of Present Illness) Category Sub-Category Detail Notes Category Not es New/Follow-up Patient Consult PAT HAS TWO CHILDREN AGES 5 AND 3. HER HAS HAD A VASECTOMY. SHE WAS PLACED ON KARIVA TO HELP LENGTHEN HER MENSES. SHE IS DOING WELL AND IS VERY HAPPY WITH THE PILL. SHE WANTS TO CONTINUE AND HAS NO CONTRAINDICATION S. HER LAST PAP TEST IN 2022 WAS NEGATIVE AND HPV NEGATIVE. SHE HAS NO HX OF ABNORMAL PAP TESTS. 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
== END 2024-05-10 13:42 | disposition home or self-care (01) ==
LOC: HO.HMCC 12:50
PROVIDERS: PCP Internal Medicine; Visit Provider Internal Medicine
DX: Z00.00 Encounter for general adult medical examination without abnormal findings (principal); Z01.419 Encounter for gynecological examination (general) (routine) without abnormal findings

== ENCOUNTER → 2024-05-10 12:49 | Outpatient (BNVA) | payer OTHER, SELFPAY | PROVIDERS: PCP Internal Medicine; Visit Provider Internal Medicine | DX: Z00.00 Encounter for general adult medical examination without abnormal findings (principal) | CPT/HCPCS: 96127 ==